=== PATIENT | male | born 1945 | race Caucasian/White ===

== ENCOUNTER 2018-03-16 18:49 | Inpatient (IN) | payer OTHER ==
[2018-03-16] MEDS: SOD CHLORIDE 0.9% 500 ML IV ×2 (19:15→23:29)
[2018-03-16 19:19] LABS: ADD MAN DIFF? NO
[2018-03-16 19:22] LABS: WHITE BLOOD COUNT 8.3 10^3/ul (4.8-10.8)
[2018-03-16 19:22] LABS: BASOPHILS % 0.4 % (0.0-2.0); EOSINOPHILS # 0.1 10^3/ul (0.0-0.5); EOSINOPHILS % 0.8 % (0.0-7.0); HEMATOCRIT 36.6 % (42.0-52.0); HEMOGLOBIN 11.6 g/dl (14.0-18.0); LYMPHOCYTES # 1.2 10^3/ul (0.8-2.9); LYMPHOCYTES % 14.3 % (15.0-51.0); MEAN CORPUSCULAR HEMOGLOBIN 28.3 pg (29.0-33.0); MEAN CORPUSCULAR HGB CONC 31.7 g/dl (32.0-37.0); MEAN CORPUSCULAR VOLUME 89.3 fl (82.0-101.0); MEAN PLATELET VOLUME 8.6 fl (7.4-10.4); MONOCYTE # 0.7 10^3/ul (0.3-0.9); MONOCYTES % 8.7 % (0.0-11.0); NEUTROPHIL # 6.2 10^3/ul (1.6-7.5); NEUTROPHILS % 74.7 % (39.0-77.0); PLATELET COUNT 313 10^3/UL (140-415); POSITIVE DIFF @See below
[2018-03-16 19:41] LABS: ALANINE AMINOTRANSFERASE 27 IU/L (13-69); ALBUMIN 2.3 g/dl (3.3-4.9); ALBUMIN/GLOBULIN RATIO 0.69; ALKALINE PHOSPHATASE 88 IU/L (42-121); ANION GAP 8 (8-16); ASPARTATE AMINO TRANSFERASE 36 IU/L (15-46); BILIRUBIN,INDIRECT 0.5 mg/dl (0-1.1); BILIRUBIN,TOTAL 0.5 mg/dl (0.2-1.3); BLOOD UREA NITROGEN 15 mg/dl (7-20); CALCIUM 8.3 mg/dl (8.4-10.2); CARBON DIOXIDE 32 mmol/L (21-31); CHLORIDE 98 mmol/L (97-110); CREATININE 0.68 mg/dl (0.61-1.24); GLUCOSE 126 mg/dl (70-220); LIPASE 111 U/L (23-300); POTASSIUM 3.4 mmol/L (3.5-5.1); SODIUM 135 mmol/L (135-144); TOTAL PROTEIN 5.6 g/dl (6.1-8.1)
[2018-03-16 19:53] LABS: PT RATIO 1.3
[2018-03-16 19:54] LABS: PARTIAL THROMBOPLASTIN TIME 34.8 Sec (25.0-35.0)
[2018-03-16 20:09] LABS: PROTIME 16.9 Sec (11.9-14.9)
[2018-03-16 20:10] LABS: INR 1.34
[2018-03-16 20:33] LABS: ANISOCYTOSIS 1+ (0-0); BAND NEUTROPHILS #M 0.8 10^3/ul (0.0-0.6); BAND NEUTROPHILS % (M) 10 % (0-4); EOSINOPHILS % (M) 1 % (0-7); LYMPHOCYTES #M 1.3 10^3/ul (0.8-2.9); LYMPHOCYTES % (M) 16 % (15-51); MICROCYTOSIS 1+ (0-0); MONOCYTE #M 0.4 10^3/ul (0.3-0.9); MONOCYTES % (M) 6 % (0-11); PLATELET ESTIMATE NORMAL; POIKILOCYTOSIS 1+ (0-0); POLYCHROMASIA 3+ (0-0); SEG NEUT #M 5.6 10^3/ul (1.6-7.5); SEGMENTED NEUTROPHILS (M) % 67 % (39-77); SMUDGE%M 4 % (0-0)
[2018-03-16 22:47] LABS: HEMATOCRIT 36.8 % (42.0-52.0); HEMOGLOBIN 11.9 g/dl (14.0-18.0)
[2018-03-16 23:21] LABS: TROPONIN-I 0.012 ng/ml (0.000-0.120)
[2018-03-16] MEDS: FAMOTIDINE 20 MG INJ INJ (23:29)
[2018-03-17] MEDS ORDERED: SOD CHLORIDE 0.9% 1,000 ML IV (01:45)
[2018-03-17] MEDS ORDERED: BISACODYL 10 MG SUPP PR (02:00)
[2018-03-17] MEDS ORDERED: MAGNESIUM HYDROXIDE 30ML CUP PO (02:00)
[2018-03-17] MEDS: D5-NS + KCL 20 MEQ 1,000 ML IV ×3 (02:00→22:00)
[2018-03-17] MEDS ORDERED: NACL 0.9% 3 ML SYG IV (02:00)
[2018-03-17] MEDS ORDERED: ONDANSETRON 4 MG INJ IV (02:00)
[2018-03-17] MEDS: PANTOPRAZOLE 40 MG INJ IV ×2 (06:22→17:01)
[2018-03-17 06:55] LABS: ALANINE AMINOTRANSFERASE 32 IU/L (13-69); ALBUMIN 2.2 g/dl (3.3-4.9); ALKALINE PHOSPHATASE 76 IU/L (42-121); ANION GAP 8 (8-16); ASPARTATE AMINO TRANSFERASE 30 IU/L (15-46); BILIRUBIN,INDIRECT 0.6 mg/dl (0-1.1); BILIRUBIN,TOTAL 0.6 mg/dl (0.2-1.3); BLOOD UREA NITROGEN 13 mg/dl (7-20); CALCIUM 7.9 mg/dl (8.4-10.2); CARBON DIOXIDE 27 mmol/L (21-31); CHLORIDE 102 mmol/L (97-110); CREATININE 0.48 mg/dl (0.61-1.24); GLUCOSE 97 mg/dl (70-220); SODIUM 134 mmol/L (135-144); TOTAL PROTEIN 5.3 g/dl (6.1-8.1)
[2018-03-17 06:58] LABS: POTASSIUM 2.9 mmol/L (3.5-5.1)
[2018-03-17 08:02] LABS: HEMATOCRIT 35.4 % (42.0-52.0); HEMOGLOBIN 11.3 g/dl (14.0-18.0); MEAN CORPUSCULAR HEMOGLOBIN 28.6 pg (29.0-33.0); MEAN CORPUSCULAR HGB CONC 31.9 g/dl (32.0-37.0); MEAN CORPUSCULAR VOLUME 89.6 fl (82.0-101.0); MEAN PLATELET VOLUME 8.5 fl (7.4-10.4); PLATELET COUNT 272 10^3/UL (140-415); POSITIVE DIFF @See below; RED BLOOD COUNT 3.95 10^6/ul (4.70-6.10); RED CELL DISTRIBUTION WIDTH 15.1 % (11.5-14.5)
[2018-03-17 08:02] LABS: WHITE BLOOD COUNT 6.5 10^3/ul (4.8-10.8)
[2018-03-17 08:10] LABS: ADD MAN DIFF? YES
[2018-03-17] MEDS: POTASSIUM CHLORIDE 100 ML IVPB ×2 (09:34→13:29)
[2018-03-17] MEDS: DOCUSATE SODIUM 100 MG CAP PO (09:38)
[2018-03-17 09:49] LABS: ANISOCYTOSIS 1+ (0-0); BAND NEUTROPHILS #M 0.7 10^3/ul (0.0-0.6); BAND NEUTROPHILS % (M) 11 % (0-4); EOSINOPHILS % (M) 4 % (0-7); GIANT THROMBO% (M) 2 % (0-0); LYMPHOCYTES #M 0.7 10^3/ul (0.8-2.9); LYMPHOCYTES % (M) 11 % (15-51); MICROCYTOSIS 1+ (0-0); MONOCYTE #M 0.6 10^3/ul (0.3-0.9); MONOCYTES % (M) 10 % (0-11); PLATELET ESTIMATE NORMAL; POIKILOCYTOSIS 1+ (0-0); POLYCHROMASIA 3+ (0-0); REACTIVE LYMPHOCYTES #M 0.1 10^3/ul (0.0-0.0); REACTIVE LYMPHOCYTES% (M) 3 % (0-0); SEGMENTED NEUTROPHILS (M) % 61 % (39-77); SMUDGE%M 7 % (0-0); TOXIC GRANULATION 1+ (0-0)
[2018-03-17 15:23] LABS: HEMOGLOBIN 11.7 g/dl (14.0-18.0)
[2018-03-17] MEDS: POTASSIUM CHLORIDE 20 MEQ POWDER FOR ORAL SOLN PO (16:46)
[2018-03-17] MEDS: METOPROLOL 50 MG TAB PO (21:23)
[2018-03-17] MEDS: TAMSULOSIN (SR) 0.4 MG CAP PO (21:23)
[2018-03-18 03:03] LABS: HEMATOCRIT 38.1 % (42.0-52.0); HEMOGLOBIN 12.1 g/dl (14.0-18.0)
[2018-03-18] MEDS: LEVOTHYROXINE 150 MCG TAB PO (06:37)
[2018-03-18] MEDS: PANTOPRAZOLE 40 MG INJ IV (06:37)
[2018-03-18] MEDS: METOPROLOL 50 MG TAB PO (09:08)
[2018-03-18 10:01] LABS: ANION GAP 8 (8-16); BLOOD UREA NITROGEN 9 mg/dl (7-20); CALCIUM 8.1 mg/dl (8.4-10.2); CARBON DIOXIDE 28 mmol/L (21-31); CHLORIDE 103 mmol/L (97-110); CREATININE 0.51 mg/dl (0.61-1.24); GLUCOSE 93 mg/dl (70-220); POTASSIUM 3.4 mmol/L (3.5-5.1); SODIUM 136 mmol/L (135-144)
[2018-03-18] MEDS ORDERED: PENDING SANTYL ORDER FOR WOUND CARE XX (10:30)
[2018-03-18] MEDS: IOHEXOL 100 ML (14:21)
[2018-03-18] MEDS: SOD CHLORIDE 0.9% 100 ML (14:21)
[2018-03-18] MEDS ORDERED: FLUTICASONE 0.05% 16 GM NAS SPRAY NASAL (16:00)
[2018-03-18] MEDS: LORAZEPAM 0.5 MG TAB PO (16:06)
== END 2018-03-18 18:15 | DRG 377 ==
LOC: 6WM 22:22 → E/R 18:49
DX: K92.1 Melena (principal); I77.74 Dissection of vertebral artery; I47.1 Supraventricular tachycardia; E03.9 Hypothyroidism, unspecified; I10 Essential (primary) hypertension; N40.0 Benign prostatic hyperplasia without lower urinary tract symptoms; I25.10 Atherosclerotic heart disease of native coronary artery without angina pectoris; S12.100D Unspecified displaced fracture of second cervical vertebra, subsequent encounter for fracture with routine healing; S42.301D Unspecified fracture of shaft of humerus, right arm, subsequent encounter for fracture with routine healing; W19.XXXD Unspecified fall, subsequent encounter; Z85.819 Personal history of malignant neoplasm of unspecified site of lip, oral cavity, and pharynx; Z87.891 Personal history of nicotine dependence; Z79.02 Long term (current) use of antithrombotics/antiplatelets
CPT/HCPCS: 36415; 70498; 74176; 80048; 80053; 83690; 83735; 84484; 85014; 85018; 85025; 85610; 85730; 86850; 86900; 86901; 99285-25

== ENCOUNTER 2018-09-20 06:30 | Inpatient (IN) | payer OTHER ==
[2018-09-20] MEDS ORDERED: PROPOFOL 0 ML (10:43)
[2018-09-20] MEDS ORDERED: ROCURONIUM 50 MG INJ (10:43)
[2018-09-20] MEDS ORDERED: CEFAZOLIN 1 GM INJ (10:43)
[2018-09-20] MEDS ORDERED: MIDAZOLAM 1 MG/ML 2 ML INJ (10:44)
[2018-09-20] MEDS ORDERED: D5W-0.45 NACL + KCL 20 MEQ 1,000 ML IV (11:38)
[2018-09-20] MEDS ORDERED: ACETAMINOPHEN 325 MG TAB PO (12:30)
[2018-09-20] MEDS ORDERED: NACL 0.9% 3 ML SYG IV (12:30)
[2018-09-20] MEDS: SOD CHLORIDE 0.9% 1,000 ML IV ×3 (14:49→21:51)
[2018-09-20] MEDS ORDERED: METOPROLOL 5 MG INJ IV (15:30)
[2018-09-20 15:44] LABS: TROPONIN-I < 0.012 ng/ml (0.000-0.120)
[2018-09-20] MEDS: DIGOXIN 500 MCG INJ IV (16:22)
[2018-09-20] MEDS: SOD CHLORIDE 0.9% 500 ML IV (16:22)
[2018-09-20 16:27] LABS: B-TYPE NATRIURETIC PEPTIDE 262 PG/ML (0-125)
[2018-09-20 18:56] LABS: TROPONIN-I < 0.012 ng/ml (0.000-0.120)
[2018-09-21 01:21] LABS: TROPONIN-I < 0.012 ng/ml (0.000-0.120)
[2018-09-21 06:57] LABS: TROPONIN-I 0.015 ng/ml (0.000-0.120)
[2018-09-21] MEDS ORDERED: LIDOCAINE 2% (SDV) 5 ML INJ (07:00)
[2018-09-21] MEDS ORDERED: ROCURONIUM 50 MG INJ (07:00)
[2018-09-21] MEDS ORDERED: CEFAZOLIN 1 GM INJ (07:00)
[2018-09-21] MEDS ORDERED: ETOMIDATE 20 MG INJ (07:00)
[2018-09-21 08:11] LABS: CHOLESTEROL 111 mg/dl (100-200)
[2018-09-21 08:11] LABS: CHOL/HDL RATIO 3.9 RATIO; HDL CHOLESTEROL 28 mg/dl (31-75); LDL CHOLESTEROL,CALCULATED 65 mg/dl; TRIGLYCERIDES 92 mg/dl (0-149)
[2018-09-21 08:17] LABS: HEMOGLOBIN A1C 5.3 % (0-5.9)
[2018-09-21] MEDS ORDERED: GELATIN SIZE 100 SPONGE (15:42)
[2018-09-21] MEDS ORDERED: MIDAZOLAM 1 MG/ML 2 ML INJ (16:16)
[2018-09-21] MEDS ORDERED: PHENYLephrine (100 MCG/ML) 5ML SYG (16:31)
[2018-09-21] MEDS: POVIDONE IODINE 10% 28.4 GM OINT (17:50)
[2018-09-21] MEDS: LIDOCAINE 1%/EPI (1:100,000) (MDV) 20 ML (18:04)
[2018-09-21] MEDS: BUPIVACAINE 0.5% (SDV) 30 ML INJ (18:04)
[2018-09-21] MEDS: POLYMYXIN/BACITRACIN 1L IRRIG (18:27)
[2018-09-21] MEDS: HEMOSTATIC MATRIX/ THROMBIN 1 EA SYG ZFS (18:28)
[2018-09-22] MEDS ORDERED: CEFAZOLIN 1 GM INJ ×3 (00:44)
[2018-09-22] MEDS ORDERED: ROCURONIUM 50 MG INJ (00:44)
[2018-09-22] MEDS ORDERED: ETOMIDATE 20 MG INJ (00:44)
[2018-09-22] MEDS ORDERED: LIDOCAINE 2% (SDV) 5 ML INJ (00:44)
[2018-09-22] MEDS ORDERED: ONDANSETRON 4 MG INJ (01:13)
[2018-09-22] MEDS ORDERED: NEOMYC/POLYMYX/BACIT 30 GM OINT (01:19)
[2018-09-22] MEDS: HYDROCODONE/APAP (10/325) TAB PO ×4 (02:00→20:26)
[2018-09-22] MEDS ORDERED: DIPHENHYDRAMINE 50 MG INJ IV (02:00)
[2018-09-22] MEDS ORDERED: LABETALOL HCL 20MG INJ IV (02:00)
[2018-09-22] MEDS ORDERED: hydrALAzine 20 MG INJ IV (02:00)
[2018-09-22] MEDS ORDERED: traMADol 50 MG TAB PO (02:00)
[2018-09-22] MEDS ORDERED: ONDANSETRON 4 MG INJ IV ×2 (02:00)
[2018-09-22] MEDS ORDERED: morphine (1 MG/ML) 10ML SYRINGE IV ×2 (02:00)
[2018-09-22] MEDS ORDERED: MEPERIDINE 25 MG INJ IV (02:00)
[2018-09-22] MEDS ORDERED: METOCLOPRAMIDE 10 MG INJ IV (02:00)
[2018-09-22] MEDS ORDERED: BISACODYL 10 MG SUPP PR (02:00)
[2018-09-22] MEDS ORDERED: EPHEDrine SULFATE 50 MG/5 ML SYG IV (02:00)
[2018-09-22] MEDS ORDERED: NALOXONE (0.4 MG/ML) INJ IV (02:00)
[2018-09-22] MEDS ORDERED: LORAZEPAM 2 MG INJ IV (02:00)
[2018-09-22] MEDS: D5W-0.45 NACL + KCL 20 MEQ 1,000 ML IV ×2 (02:28→18:34)
[2018-09-22] MEDS: CEFAZOLIN 1 GM/50 ML (PMX) 50 ML IVPB ×3 (02:28→18:34)
[2018-09-22] MEDS: morphine 4 MG/ML VIAL IV ×2 (02:46→03:14)
[2018-09-22] MEDS: SOD CHLORIDE 0.9% 500 ML IV ×2 (05:58→06:57)
[2018-09-22] MEDS: PANTOPRAZOLE 40 MG INJ IV (06:15)
[2018-09-22] MEDS: DOCUSATE SODIUM 100 MG CAP PO ×2 (09:00→20:26)
[2018-09-22] MEDS: HYDROmorphONE 0.5 MG/0.5 ML SYG IV (18:54)
[2018-09-23] MEDS: HYDROCODONE/APAP (10/325) TAB PO ×4 (01:42→19:30)
[2018-09-23] MEDS: PANTOPRAZOLE 40 MG INJ IV (05:07)
[2018-09-23] MEDS: D5W-0.45 NACL + KCL 20 MEQ 1,000 ML IV ×3 (05:09→15:23)
[2018-09-23 05:29] LABS: ADD MAN DIFF? NO
[2018-09-23 05:44] LABS: ABNORMAL IP MESSAGE 1; BASOPHILS % 0.3 % (0.0-2.0); EOSINOPHILS # 0.1 10^3/ul (0.0-0.5); EOSINOPHILS % 0.7 % (0.0-7.0); HEMATOCRIT 33.3 % (42.0-52.0); HEMOGLOBIN 10.4 g/dl (14.0-18.0); MEAN CORPUSCULAR HEMOGLOBIN 27.3 pg (29.0-33.0); MEAN CORPUSCULAR HGB CONC 31.2 g/dl (32.0-37.0); MEAN CORPUSCULAR VOLUME 87.4 fl (82.0-101.0); MEAN PLATELET VOLUME 8.7 fl (7.4-10.4); MONOCYTE # 1.7 10^3/ul (0.3-0.9); MONOCYTES % 10.7 % (0.0-11.0); NEUTROPHILS % 81.6 % (39.0-77.0); PLATELET COUNT 188 10^3/UL (140-415); POSITIVE DIFF @See below; RED BLOOD COUNT 3.81 10^6/ul (4.70-6.10); RED CELL DISTRIBUTION WIDTH 17.2 % (11.5-14.5)
[2018-09-23 06:12] LABS: ANION GAP 5 (5-13); BLOOD UREA NITROGEN 8 mg/dl (7-20); CALCIUM 9.9 mg/dl (8.4-10.2); CARBON DIOXIDE 31 mmol/L (21-31); CHLORIDE 102 mmol/L (97-110); CREATININE 0.55 mg/dl (0.61-1.24); GLUCOSE 110 mg/dl (70-220); POTASSIUM 4.8 mmol/L (3.5-5.1); SODIUM 138 mmol/L (135-144)
[2018-09-23] MEDS: DOCUSATE SODIUM 100 MG CAP PO (08:19)
== END 2018-09-23 19:58 | DRG 471 ==
LOC: REC 06:30 → ICU 09-21 17:50 → 6WM 12:43
PROVIDERS: Neurological Surgery
PROC: 0RG Upper Joints, Fusion (ICD-10-PCS; principal; 2018-09-21 01:38)
PROC: 0RG2071 Fusion of 2 or more Cervical Vertebral Joints with Autologous Tissue Substitute, Posterior Approach, Posterior Column, Open Approach (ICD-10-PCS; 2018-09-21 01:38)
DX: S12.110A Anterior displaced Type II dens fracture, initial encounter for closed fracture (principal); I77.74 Dissection of vertebral artery; I47.1 Supraventricular tachycardia; I48.92 Unspecified atrial flutter; I50.20 Unspecified systolic (congestive) heart failure; I42.9 Cardiomyopathy, unspecified; S12.190A Other displaced fracture of second cervical vertebra, initial encounter for closed fracture; M40.204 Unspecified kyphosis, thoracic region; I25.10 Atherosclerotic heart disease of native coronary artery without angina pectoris; E03.9 Hypothyroidism, unspecified; R94.31 Abnormal electrocardiogram [ECG] [EKG]; I11.0 Hypertensive heart disease with heart failure; I95.9 Hypotension, unspecified; I48.0 Paroxysmal atrial fibrillation; E78.5 Hyperlipidemia, unspecified; I25.2 Old myocardial infarction; Z85.89 Personal history of malignant neoplasm of other organs and systems; Z92.3 Personal history of irradiation; Z86.718 Personal history of other venous thrombosis and embolism; Z87.891 Personal history of nicotine dependence; W19.XXXA Unspecified fall, initial encounter; Z87.19 Personal history of other diseases of the digestive system
CPT/HCPCS: 71045; 72040; 80048; 80061; 83036; 83880; 84443; 84484; 85025; 86850; 86900; 86901; 86920; 87081; 93005; 93306; 97110; 97163